=== PATIENT | female | born 1985 | race Caucasian/White ===

== ENCOUNTER 2023-11-29 13:39 | Emergency (ER) | payer BC ==
[2023-11-29 13:54] VITALS: BP 137/85; PULSE 94; RESP 18; TEMP 97.9; BMI 26.2
== END 2023-11-29 14:40 | disposition home or self-care (01) ==
LOC: FER 13:39
DX: L98.9 Disorder of the skin and subcutaneous tissue, unspecified (principal); B07.9 Viral wart, unspecified
CPT/HCPCS: 99282-25